=== PATIENT | female | born 1930 | race Caucasian/White ===

== ENCOUNTER 2017-07-12 10:14 | Emergency (ER) | payer OTHER, MEDICARE ==
[2017-07-12 10:19] VITALS: BP 158/77; PULSE 98; TEMP 98; BMI 22.4
[2017-07-12] MEDS ORDERED: valACYclovir HCL 1000 MG TABLET PO ONE (10:25)
--- NOTE | 2017-07-12 10:27 | PDOC ---
History of Present Illness - General Chief Complaint: Rash Stated Complaint: RED RASH TO RT THIGH Time Seen by Provider: 07/12/17 10:24 History Source: Patient Exam Limitations: No Limitations - History of Present Illness Initial Comments: 07/12/17 10:29 86 year old female with history of shingles p/w Vesicular rash along the right lateral distal thigh x 1 week. A day prior to the rash, patient underwent dental bridge work at dentist. Following day, noticed the rash along the L5 dermatome. No other lesions noted. No fevers, chills. Reported feeling like a burning like sensation. Rash was improving but patient's children saw rash and was concerned and brought pt to ED. Past History - Past Medical History Allergies/Adverse Reactions: Allergies Allergy/AdvReac Type Severity Reaction Status Date / Time No Known Allergies Allergy Verified 07/12/17 10:15 Home Medications: Ambulatory Orders Ascorbic Acid [Vitamin C -] 500 mg PO DAILY 02/03/15 Cholecalciferol (Vitamin D3) [Vitamin D -] 400 unit PO DAILY 02/03/15 Glucosamine/Chondro Terrell A [Cosamin Ds Tablet] 1 each PO DAILY 02/03/15 Vitamin B Complex [Stress B] 1 each PO DAILY 02/03/15 Valacyclovir HCl [Valtrex] 1,000 mg PO TID #21 tablet 07/12/17 Anemia: No Asthma: No Cancer: Yes (BASAL CELL CA-NOSE) Cardiac Disorders: No CVA: No COPD: No CHF: No Dementia: No Diabetes: No 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) Disorders: No HTN: No Hypercholesterolemia: No Liver Disease: No Seizures: No Thyroid Disease: No - Surgical History Abdominal Surgery: No Appendectomy: Yes Cardiac Surgery: No Cholecystectomy: No Lung Surgery: No Neurologic Surgery: No Orthopedic Surgery: Yes (RIGHT KNEE ARTHROSCOPY-1992) - Suicide/Smoking/Psychosocial Hx Smoking History: Never smoked Have you smoked in the past 12 months: No Hx Alcohol Use: (occasional) Drug/Substance Use Hx: No Substance Use Type: Alcohol Hx Substance Use Treatment: No Review of Systems - Review of Systems Able to Perform ROS?: Yes Comments:: 07/12/17 10:30 GENERAL/CONSTITUTIONAL: No fever, weakness. HEAD, EYES, EARS, NOSE AND THROAT: No change in vision. No ear pain or discharge. No sore throat. CARDIOVASCULAR: No chest pain or shortness of breath. RESPIRATORY: No cough, wheezing, or hemoptysis. GASTROINTESTINAL: No abdominal pain, nausea, vomiting, diarrhea, or decreased PO intolerance. GENITOURINARY: No dysuria, frequency, or change in urination. MUSCULOSKELETAL: No joint or muscle swelling or pain. No neck or back pain. SKIN: No rash NEUROLOGIC: No headache, vertigo, loss of consciousness, or change in strength/ sensation. ENDOCRINE: No increased thirst. No abnormal weight change. HEMATOLOGIC/LYMPHATIC: No anemia, easy bleeding, or history of blood clots. ALLERGIC/IMMUNOLOGIC: +Rash *Physical Exam - Vital Signs Last Vital Signs Temp Pulse Resp BP Pulse Ox 98 F 98 H 18 158/77 98 07/12/17 10:15 07/12/17 10:15 07/12/17 10:15 07/12/17 10:15 07/12/17 10:15 - Physical Exam Comments: 07/12/17 10:30 GENERAL: Awake, alert, and fully oriented, in no acute distress. HEAD: No signs of trauma EYES: PERRLA, EOMI, sclera anicteric, conjunctiva clear ENT: Auricles normal inspection, hearing grossly normal, nares patent, NECK: Normal ROM, supple EXTREMITIES: Normal range of motion, no edema. No clubbing or cyanosis. No cords, erythema, or tenderness NEUROLOGICAL: Cranial nerves II through XII grossly intact. Normal speech, normal gait SKIN: Vesicular rashes clustered distal lateral thigh in RLE L5 dermatome pattern. NOT disseminated. Medical Decision Making - Medical Decision Making 07/12/17 10:30 Vital Signs Temp Pulse Resp BP Pulse Ox 98 F 98 H 18 158/77 98 07/12/17 10:15 07/12/17 10:15 07/12/17 10:15 07/12/17 10:15 07/12/17 10:15 This rash is consistent with uncomplicated shingles. Valacyclovir. Hygiene and isolation precautions with elderly, children and women at home. Follow up with PMD. Return precautions given including worsening rash. Pt verbalizes understanding and agrees with plan. I discussed the physical exam findings, ancillary test results and final diagnoses with the patient. I answered all of the patient's questions. The patient was satisfied with the care received and felt comfortable with the discharge plan and treatment plan. The patient will call their primary care physician within 24 hours to arrange follow-up and will return to the Emergency Department with any new, persistant or worsening symptoms. *DC/Admit/Observation/Transfer Diagnosis at time of Disposition: Shingles Qualifiers: Herpes zoster complications: without complications Qualified Code(s): B02.9 - Zoster without complications - Discharge Dispostion Disposition: HOME Condition at time of disposition: Stable Admit: No - Prescriptions Prescriptions: Valacyclovir HCl [Valtrex] 1,000 mg PO TID #21 tablet - Referrals Referrals: Taurus Ordaz MD [Primary Care Provider] - - Patient Instructions Printed Discharge Instructions: DI for Shingles Additional Instructions: You have shingles. Please take the antiviral therapy (valacyclovir) 1000 mg every 8 hours for 1 week. Please call your doctor and schedule a follow up appointment. If you notice that your rash is showing up in other places of your body, it is very important that you return to the ER. - Post Discharge Activity
[2017-07-12] MEDS ORDERED: valACYclovir HCL 500 MG TABLET (FP) ONE ×2 (10:28→10:29)
== END 2017-07-12 10:45 | disposition home or self-care (01) ==
LOC: FER 10:14
DX: B02.9 Zoster without complications (principal); Z85.828 Personal history of other malignant neoplasm of skin; K27.9 Peptic ulcer, site unspecified, unspecified as acute or chronic, without hemorrhage or perforation
CPT/HCPCS: 99282-25

== ENCOUNTER 2017-10-04 10:09 | Emergency (ER) | payer OTHER, MEDICARE ==
[2017-10-04 10:15] VITALS: BP 154/79; PULSE 79; TEMP 97.9; BMI 22.4
--- NOTE | 2017-10-04 10:22 | PDOC ---
History of Present Illness - General Chief Complaint: Cold Symptoms Stated Complaint: SINUS PAIN Time Seen by Provider: 10/04/17 10:13 History Source: Patient Exam Limitations: No Limitations - History of Present Illness Initial Comments: 10/04/17 10:17 86 y/o female with sinus pressure for several days, just got over a cold. Had an appointment today with her PMD, but he cancelled on her. Denies headache, SOB , fever or chills. No N/V/d/C. Pressure behind the eyes and congested. 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) Disorders: No HTN: No Hypercholesterolemia: No Liver Disease: No Seizures: No Thyroid Disease: No - Surgical History Abdominal Surgery: No Appendectomy: Yes Cardiac Surgery: No Cholecystectomy: No Lung Surgery: No Neurologic Surgery: No Orthopedic Surgery: Yes (RIGHT KNEE ARTHROSCOPY-1992) - Suicide/Smoking/Psychosocial Hx Smoking History: Never smoked Have you smoked in the past 12 months: No Hx Alcohol Use: Yes Drug/Substance Use Hx: No Substance Use Type: Alcohol Hx Substance Use Treatment: No Review of Systems - Review of Systems Able to Perform ROS?: Yes Is the patient limited [place]an proficient: No Constitutional: No: Chills, Fever Respiratory: No: Cough, Shortness of Breath Cardiac (ROS): No: Chest Pain, Edema ABD/GI: No: Diarrhea, Nausea, Vomiting Neurological: No: Headache All Other Systems: Reviewed and Negative *Physical Exam - Vital Signs Last Vital Signs Temp Pulse Resp BP Pulse Ox 97.9 F 79 18 154/79 100 10/04/17 10:09 10/04/17 10:09 10/04/17 10:09 10/04/17 10:10/04/17 10:09 - Physical Exam General Appearance: Yes: Nourished, Appropriately Dressed. No: Apparent Distress HEENT: positive: EOMI, JULIO, Normal Voice, Symmetrical, Pharynx Normal. negative: Normal ENT Inspection (pressure in both maxillary sinuses b/l) Neck: positive: Trachea midline, Normal Thyroid, Supple. negative: Tender, Rigid Respiratory/Chest: positive: Lungs Clear, Normal Breath Sounds. negative: Chest Tender, Respiratory Distress Cardiovascular: positive: Regular Rhythm, Regular Rate, S1, S2. negative: Edema , JVD, Murmur Vascular Pulses: Femoral (R): 4+, Femoral (L): 4+, Carotid (R): 4+, Carotid (L) : 4+, Dorsalis-Pedis (R): 4+, Doralis-Pedis (L): 4+ Gastrointestinal/Abdominal: positive: Normal Bowel Sounds, Flat, Soft. negative : Tender, Organomegaly, Pulsatile Mass Lymphatic: negative: Adenopathy, Tenderness, Other Musculoskeletal: positive: Normal Inspection. negative: CVA Tenderness Extremity: positive: Normal Capillary Refill, Normal Inspection, Normal Range of Motion. negative: Tender Integumentary: positive: Normal Color, Dry, Warm Neurologic: positive: composite worker II-XII NML intact, Fully Oriented, Alert, Normal Mood/ Affect, Normal Response, Motor Strength 5/5 ED Treatment Course - ADDITIONAL ORDERS Additional order review: 10/04/17 10:20 Pt presents with sinus pressure, will place on Amoxicillin If worsen return to ER *DC/Admit/Observation/Transfer Diagnosis at time of Disposition: Sinusitis Qualifiers: Sinusitis location: maxillary Chronicity: acute Recurrence: not specified as recurrent Qualified Code(s): J01.00 - Acute maxillary sinusitis, unspecified - Discharge Dispostion Disposition: HOME Condition at time of disposition: Stable Admit: No - Referrals Referrals: Taurus Ordaz MD [Primary Care Provider] - - Patient Instructions Printed Discharge Instructions: DI for Sinusitis Additional Instructions: Fluids, rest, Tylenol Amoxicillin 875 mg 2x/day for 10 days If worsen return to ER - Post Discharge Activity
== END 2017-10-04 10:25 | disposition home or self-care (01) ==
LOC: FER 10:09
DX: J01.00 Acute maxillary sinusitis, unspecified (principal); Z85.828 Personal history of other malignant neoplasm of skin
CPT/HCPCS: 99281-25